=== PATIENT | female | born 1945 | race Caucasian/White ===

== ENCOUNTER 2022-11-02 08:35 | Emergency (ER) | payer MEDICARE ==
[2022-11-02 08:08] LABS: BASE EXCESS VENOUS -11.2 mmol/l ((-2)-(+3)); BICARBONATE,VENOUS 17 mmol/l (19-25); HEMATOCRIT 34.2 % (37.0-47.0); MEAN CORPUSCULAR HEMOGLOBIN 29.7 pg (27.0-34.0); MEAN CORPUSCULAR HGB CONC 32.2 g/dL (33.0-35.0); MEAN CORPUSCULAR VOLUME 92.4 fL (80-100); O2 DELIVERY DEVICE BIPAP; O2 SATURATION VENOUS 98.2 % (60-80); PCO2 VENOUS 50 mmHg (41-51); PLATELET COUNT,PLT 426 10^3/uL (150-450); PO2 VENOUS 119 mmHg (35-42); WHITE BLOOD CELL COUNT,WBC 23.9 10^3/uL (5.0-10.0)
[2022-11-02 08:17] LABS: PH,VENOUS 7.16 (7.31-7.41)
[2022-11-02 08:27] LABS: LACTIC ACID 1.3 mmol/L (0.4-2.0)
[2022-11-02 08:33] LABS: A/G RATIO 0.62; ALANINE AMINOTRANSFERASE,ALT 17 U/L (14-59); ALBUMIN 2.8 g/dL (3.4-5.0); ALKALINE PHOSPHATASE 124 U/L (46-116); ANION GAP 18.5 mEq/L (7-13); ASPARTATE AMNIOTRANSFERASE,AST 12 U/L (15-37); BILIRUBIN TOTAL 0.3 mg/dL (0.2-1.0); BLOOD UREA NITROGEN,BUN 43 mg/dL (7-18); BUN/CREATININE RATIO 15.2 (No establ ref range); CALCIUM 8.8 mg/dL (8.5-10.1); CARBON DIOXIDE,CO2 20 mmol/L (21-32); CHLORIDE,CL 104 mmol/L (98-107); CREATININE 2.83 mg/dL (0.55-1.02); ESTIMATED GFR 17 mL/min (>=60); GLUCOSE RANDOM 220 mg/dL (70-99); MAGNESIUM 1.6 mg/dL (1.8-2.4); POTASSIUM,K 4.5 mmol/L (3.5-5.1); PROTEIN TOTAL,TP 7.3 g/dL (6.4-8.2); SODIUM,NA 138 mmol/L (136-145); TSH ULTRASENSITIVE 6.56 uIU/mL (0.36-3.74)
[2022-11-02 08:34] LABS: C-REACTIVE PROTEIN > 36.0 mg/dL (0.0-0.9); ETHANOL BLOOD MEDICAL < 3 mg/dL (0)
[~2022-11-02 08:35] MED LIST: Furosemide 100 MG/10 ML SDV IVPUSH ONE
[2022-11-02] MEDS ORDERED: Piperacillin/Tazobactam 3.375 GM in Sodium Chloride 0.9% 100 ML IV ONE (08:41)
[2022-11-02 08:42] LABS: AMPHETAMINES,URINE NEGATIVE (NEGATIVE); APPEARANCE,URINE SLIGHTLY CLOUDY (CLEAR); BARBITURATES,URINE NEGATIVE (NEGATIVE); BENZODIAZEPINE,URINE NEGATIVE (NEGATIVE); BILIRUBIN,URINE NEGATIVE (NEGATIVE); COLOR,URINE YELLOW (YELLOW); GLUCOSE,URINE 100 (NEGATIVE); KETONES,URINE NEGATIVE (NEGATIVE); LEUKOCYTE ESTERASE,URINE NEGATIVE (NEGATIVE); MDMA (ECSTASY), URINE NEGATIVE (NEGATIVE); METHADONE,URINE NEGATIVE (NEGATIVE); METHAMPHETAMINES,URINE NEGATIVE (NEGATIVE); NITRITE,URINE NEGATIVE (NEGATIVE); OCCULT BLOOD,URINE SMALL (NEGATIVE); OPIATES,URINE NEGATIVE (NEGATIVE); OXYCODONE,URINE NEGATIVE (NEGATIVE); PH,URINE 5.5 (5.0-9.0); PHENCYCLIDINE,URINE NEGATIVE (NEGATIVE); PROTEIN,URINE >=300 (NEGATIVE); TCA,URINE NEGATIVE (NEGATIVE); UROBILINOGEN,URINE 0.2 mg/dL (0.2-1.0)
[2022-11-02] MEDS ORDERED: methylPREDNISolone Sodium Succinate 125 MG/2 ML SDV IVPUSH ONE (08:43)
[2022-11-02] MEDS ORDERED: Aspirin 81 MG Tab.Chew PO ONE (08:47)
[2022-11-02 08:48] LABS: B-TYPE NATRIURETIC PEPTIDE,BNP 4180 pg/ml (0-100)
[2022-11-02 08:49] LABS: BAND PERCENT MAN 3 %; EOSINOPHILS PERCENT MAN 2 % (1-3); LYMPHOCYTES PERCENT MAN 14 % (20-50); MONOCYTES PERCENT MAN 4 % (2-8); SEG NEUTROPHILS PERCENT MAN 77 % (42-75)
[2022-11-02 08:57] LABS: INR 0.8 (0.9-1.2); PROTHROMBIN TIME 8.8 SEC (9.0-12.0); PTT,PARTIAL THROMBOPLSTIN TIME 30.4 SEC (22.0-34.0)
[2022-11-02 08:58] LABS: BACTERIA,URINE FEW /HPF (0-FEW/HPF); EPITHELIAL CELLS,URINE MODERATE /HPF (NOT SEEN); MUCUS,URINE FEW /LPF (NOT SEEN); WBC,URINE 0-5 /HPF (0-5/HPF); YEAST,URINE FEW /HPF (NOT SEEN)
== END 2022-11-02 09:59 ==
LOC: DL.ED 08:35
DX: J44.1 Chronic obstructive pulmonary disease with (acute) exacerbation (principal); I13.0 Hypertensive heart and chronic kidney disease with heart failure and stage 1 through stage 4 chronic kidney disease, or unspecified chronic kidney disease; E11.22 Type 2 diabetes mellitus with diabetic chronic kidney disease; N18.4 Chronic kidney disease, stage 4 (severe); I50.9 Heart failure, unspecified; J06.9 Acute upper respiratory infection, unspecified; L89.899 Pressure ulcer of other site, unspecified stage; E83.42 Hypomagnesemia; R06.03 Acute respiratory distress; R79.1 Abnormal coagulation profile; R77.8 Other specified abnormalities of plasma proteins; Z88.8 Allergy status to other drugs, medicaments and biological substances; Z20.822 Contact with and (suspected) exposure to COVID-19
CPT/HCPCS: 36415; 71045; 80053; 80305-QW; 80307; 81001; 82803; 83605; 83735; 83880; 84443; 84484; 85025; 85379; 85610; 85730; 86140; 87040; 87804; 93005; 93010; 96365; 96375; 99285; 99285-25; A9270-GY; J1940; J2543; J2930; J3370; J3490; J7050; U0002